=== PATIENT | male | born 1970 | race Caucasian/White ===

== ENCOUNTER 2017-07-06 04:35 | Emergency (ER) | payer OTHER ==
--- NOTE | 2017-07-06 04:40 | EDPHY ---
H & P HPI/ROS: HPI CHIEF COMPLAINT: Left-sided chest pain, left arm numbness and tingling HISTORY OF PRESENT ILLNESS: This patient very pleasant 47-year-old male, he does have significant past medical history for HIV. He tells me undetectable viral load and normal CD4 count. Patient denies any other medical problems. He does drink alcohol every day. He presents emergency room at 5 o'clock in the morning with left-sided chest discomfort this been present for over 12 hours. It comes and goes it is worse with exertion. Patient reports to me that it is worse when he stands up and does things. He gets this chest pressure left-sided chest and then numbness and tingling into his arm. States initially he had some calf pain left leg. He denies any pleuritic pain or shortness of breath. Decided come to the emergency room late this evening due to arm tingling and left-sided chest discomfort. However upon arrival he tells me his symptoms have resolved at this time. He denies chest pain at this time. Past Medical History: HIV Past Surgical History: No recent surgery Social History: Daily alcohol use, daily marijuana, denies illicit drugs Family History: Noncontributory ROS REVIEW OF SYSTEMS: A comprehensive 10 point review of systems is otherwise negative aside from elements mentioned in the history of present illness. Exam Constitutional appears well nontoxic, triage nursing summary reviewed, vital signs reviewed, awake/alert. Eyes normal conjunctivae and sclera, EOMI, PERRLA. HENT normal inspection, atraumatic, moist mucus membranes, no epistaxis, neck supple/ no meningismus, no raccoon eyes. Respiratory clear to auscultation bilaterally, normal breath sounds, no respiratory distress, no wheezing. Cardiovascular rate normal, regular rhythm, no murmur, no edema, distal pulses normal. Gastrointestinal soft, non-tender, no rebound, no guarding, normal bowel sounds, no distension, no pulsatile mass. Genitourinary no CVA tenderness. Musculoskeletal no midline vertebral tenderness, full range of motion, no calf swelling, no tenderness of extremities, no meningismus, good pulses, neurovascularly intact. Skin pink, warm, & dry, no rash, skin atraumatic. Neurologic awake, alert and oriented x 3, AAOx3, moves all 4 extremities equally, motor intact, sensory intact, CN II-XII intact, normal cerebellar, normal vision, normal speech. Psychiatric normal mood/affect. Heme/Lymph/Immune no lymphadenopathy. Differential diagnosis includes but is not limited to: ACS, atypical chest pain , pneumothorax, pneumonia, pulmonary embolism, aortic dissection, congestive heart failure, tumor, musculoskeletal pain, esophageal pain, GERD, peptic ulcer disease, pancreatitis Medical Decision Making: Plan for this patient IV establishment with IV fluid bolus, full-dose aspirin, EKG, chest x-ray, blood work. Evaluate and rule out acute coronary syndrome. Re-evaluation: EKG interpretation by me on record in [facility] system. Impression time of EKG 4:45 a.m., this is sinus rhythm rate of 87 I do not appreciate any acute ischemia changes specifically no ST elevation or ST depression. No significant T-wave abnormalities. CT scan of the angiogram chest with IV contrast. The results of the study are no acute pulmonary embolism.. The study was read by Dr. Robledo. I viewed the images myself on the PACS system. Patient received a CT scan angiogram of the chest for positive D-dimer and chest pain. It is negative for PE. 0621AM: I did re-evaluate the patient at this time. He is chest pain-free. Patient is resting comfortably in no acute distress. Blood work has been reviewed. Elevated alcohol level. Given his symptoms of left-sided chest discomfort pressure dull ache and left arm numbness and tingling patient be admitted to the hospital for further cardiac evaluation rule out. 0625AM: Discussed results with the patient. Encouraged patient's stay in the hospital for further cardiac evaluation. He has agreed for this. Spoke with the hospitalist service Dr. Bender who agrees to admit this patient. 0656AM: Extensive discussion with this patient. Went over his results with him. I encouraged the patient to be admitted for chest pain ACS rule out given his left-sided chest discomfort and arm numbness and tingling. However the patient is refusing hospital admission. He is requesting to be go from the hospital. I explained that given his symptoms of chest pain left arm numbness tingling history of HIV alcohol this is cardiac risk factors. He should stay in the hospital for cardiac evaluation and rule out. However this time he is declining this. Refusing to stay. He will not give me a great answer for why. He does have capacity make this decision he is clinically sober. He is not intoxicated despite his elevated alcohol level. He tells me that he drinks much more than this. I explained him that even though his troponin is negative here CT scan does not show a pulmonary embolism and his EKG does not show an acute heart attack that I would like to keep him in the hospital for further cardiac evaluation and rule out given his risk factors And presentation however he is to refusing this. He understands that I cannot assure his safety if he leaves here he can have a massive heart attack and . He understands the risk of this. He understands the risk of leaving. He does understand he changes mind or feels worse he should immediately return to the emergency room for further evaluation and admission. I did spend approximately 30 minutes at bedside discussing all this with him. He understands. He understands the risks of leaving against medical advice without complete for further cardiac evaluation and workup. Source: Patient - Medical/Surgical History Hx Asthma: No Hx Chronic Respiratory Disease: No Hx Diabetes: No Hx Cardiac Disease: No Hx Renal Disease: No Hx Cirrhosis: No Hx Alcoholism: No Hx HIV/AIDS: Yes Hx Splenectomy or Spleen Trauma: No Other PMH: HIV/AIDS - Social History Smoking Status: Never smoked Constitutional: Initial Vital Signs Temperature (C) 36.6 C 07/06/17 04:41 Heart Rate 97 07/06/17 04:41 Respiratory Rate 18 07/06/17 04:41 Blood Pressure 117/84 H 07/06/17 04:41 O2 Sat (%) 96 07/06/17 04:41 O2 Delivery Mode Nasal Cannula O2 (L/minute) 2 Allergies/Adverse Reactions: Sulfa (Sulfonamide Antibiotics) Allergy (Verified 07/06/17 04:41) Home Medications: Medication Instructions Recorded Advil 08/18/16 Descovy 200-25 mg Tablet 08/18/16 Tivicay 08/18/16 Hydrocodone/APAP 5/325 [[place] 1 - 2 tab PO Q4H PRN #10 tab 08/23/16 5/325] Promethazine HCl 25 mg PO Q6-8PRN PRN #10 tablet 08/23/16 Medical Decision Making - Data Points Laboratory Results: Laboratory Results 07/06/17 04:55 07/06/17 04:55 07/06/17 07/06/17 07/06/17 04:55 04:55 04:55 WBC RBC Hgb Hct MCV MCH MCHC RDW Plt Count MPV Neut % (Auto) Lymph % (Auto) [place] % (Auto) Eos % (Auto) Baso % (Auto) Nucleat RBC Rel Count Absolute Neuts (auto) Absolute Lymphs (auto) Absolute Monos (auto) Absolute Eos (auto) Absolute Basos (auto) Absolute Nucleated RBC Immature Gran % Seg Neutrophils % Lymphocytes % Monocytes % Immature Gran # Absolute Seg Neuts Absolute Lymphocytes Absolute Monocytes RBC/WBC/PLT Morphology Atypical Lymphocytes Platelet Estimate Smear Review By PT 13.1 SEC SEC (12.0-15.0) INR 1.00 (0.83-1.16) APTT 24.1 SEC SEC (23.0-38.0) D-Dimer 0.66 ug/mLFEU H ug/mLFEU (0.00-0.50) Sodium 146 mEq/L H mEq/L (134-144) Potassium 4.4 mEq/L mEq/L (3.5-5.2) Chloride 109 mEq/L mEq/L (97-110) Carbon Dioxide 21 mEq/l L mEq/l (22-31) Anion Gap 16 mEq/L mEq/L (8-16) BUN 12 mg/dL mg/dL (7-23) Creatinine 0.9 mg/dL mg/dL (0.7-1.3) Estimated GFR > 60 Glucose 99 mg/dL mg/dL (70-100) Calcium 9.0 mg/dL mg/dL (8.5-10.4) Magnesium 1.9 mg/dL mg/dL (1.6-2.3) Total Bilirubin 0.6 mg/dL mg/dL (0.1-1.4) Conjugated Bilirubin 0.4 mg/dL mg/dL (0.0-0.5) Unconjugated Bilirubin 0.2 mg/dL mg/dL (0.0-1.1) AST 37 IU/L IU/L (17-59) ALT 37 IU/L IU/L (21-72) Alkaline Phosphatase 63 IU/L IU/L (38-126) Creatine Kinase 71 IU/L IU/L (0-224) CK-MB (CK-2) Fraction 0.79 ng/mL ng/mL (0.00-3.19) Troponin I < 0.012 ng/mL ng/mL (0.000-0.034) NT-Pro-B Natriuret Pep 11 pg/mL pg/mL (0-125) Total Protein 7.6 g/dL g/dL (6.3-8.2) Albumin 4.1 g/dL g/dL (3.5-5.0) Lipase 226 IU/L IU/L (23-300) Ethyl Alcohol 286 mg/dL H mg/dL (0-10) 07/06/17 04:55 WBC 10.43 10^3/uL H 10^3/uL (3.80-9.50) RBC 4.78 10^6/uL 10^6/uL (4.40-6.38) Hgb 15.8 g/dL g/dL (13.7-17.5) Hct 45.8 % % (40.0-51.0) MCV 95.8 fL fL (81.5-99.8) MCH 33.1 pg pg (27.9-34.1) MCHC 34.5 g/dL g/dL (32.4-36.7) RDW 14.2 % % (11.5-15.2) Plt Count 270 10^3/uL 10^3/uL (150-400) MPV 9.7 fL fL (8.7-11.7) Neut % (Auto) 16.2 % L % (39.3-74.2) Lymph % (Auto) 70.9 % H % (15.0-45.0) Warren % (Auto) 10.8 % % (4.5-13.0) Eos % (Auto) 0.8 % % (0.6-7.6) Baso % (Auto) 1.0 % % (0.3-1.7) Nucleat RBC Rel Count 0.0 % % (0.0-0.2) Absolute Neuts (auto) 1.70 10^3/uL 10^3/uL (1.70-6.50) Absolute Lymphs (auto) 7.39 10^3/uL H 10^3/uL (1.00-3.00) Absolute Monos (auto) 1.13 10^3/uL H 10^3/uL (0.30-0.80) Absolute Eos (auto) 0.08 10^3/uL 10^3/uL (0.03-0.40) Absolute Basos (auto) 0.10 10^3/uL 10^3/uL (0.02-0.10) Absolute Nucleated RBC 0.00 10^3/uL 10^3/uL (0-0.01) Immature Gran % 0.3 % % (0.0-1.1) Seg Neutrophils % 12 % % Lymphocytes % 80 % % Monocytes % 8 % % Immature Gran # 0.03 10^3/uL 10^3/uL (0.00-0.10) Absolute Seg Neuts 1.25 10^/uL L 10^/uL (1.70-6.50) Absolute Lymphocytes 8.34 10^3/uL H 10^3/uL (1.00-3.00) Absolute Monocytes 0.83 10^3/uL H 10^3/uL (0.30-0.80) RBC/WBC/PLT Morphology NORMAL (NORMAL) Atypical Lymphocytes 2+ H Platelet Estimate ADEQUATE (ADEQ) Smear Review By Pending PT INR APTT D-Dimer Sodium Potassium Chloride Carbon Dioxide Anion Gap BUN Creatinine Estimated GFR Glucose Calcium Magnesium Total Bilirubin Conjugated Bilirubin Unconjugated Bilirubin AST ALT Alkaline Phosphatase Creatine Kinase CK-MB (CK-2) Fraction Troponin I NT-Pro-B Natriuret Pep Total Protein Albumin Lipase Ethyl Alcohol Medications Given: Discontinued Medications Aspirin (Aspirin) 324 mg PO EDNOW ONE Stop: 07/06/17 04:57 Last Admin: 07/06/17 05:05 Dose: 324 mg Sodium Chloride (Ns) 1,000 mls @ 0 mls/hr IV EDNOW ONE; Wide Open PRN Reason: Protocol Stop: 07/06/17 04:57 Last Admin: 07/06/17 05:05 Dose: 1,000 mls Nitroglycerin (Nitrostat) 0.4 mg SL EDNOW ONE Stop: 07/06/17 05:20 Last Admin: 07/06/17 05:22 Dose: 0.4 mg Departure - Departure Disposition: Against Medical Advice Clinical Impression: Chest pain Qualifiers: Chest pain type: unspecified Qualified Code(s): R07.9 - Chest pain, unspecified Condition: Fair
[2017-07-06 04:43] VITALS: TEMP 97.9
--- NOTE | 2017-07-06 04:50 | CPEKG ---
Heart Rate: 87 RR Interval: 690 P-R Interval: 148 QRSD Interval: 98 QT Interval: 364 QTC Interval: 438 P [place]: 27 QRS [place]: 90 T Wave [place]: 10 EKG Severity - BORDERLINE ECG - EKG Impression: SINUS RHYTHM EKG Impression: BORDERLINE RIGHT AXIS DEVIATION EKG Impression: BORDERLINE INFERIOR Q WAVES Electronically Signed By: Carlos Healy 06-Jul-2017 07:28:48
[2017-07-06] MEDS ORDERED: ASPIRIN 81 MG CHEWABLE TAB PO ONE (04:56)
[2017-07-06] MEDS ORDERED: NS 1,000 ML IV ONE (04:56)
[2017-07-06 05:09] LABS: % IMMATURE GRANULYOCYTES 0.3 % (0.0-1.1); ABSOLUTE IMMATURE GRANULOCYTES 0.03 10^3/uL (0.00-0.10); ADD DIFF? NO; ADD MORPH? NO; ADD SCAN? YES; ATYPICAL LYMPHOCYTE FLAG 0 (0-99); FRAGMENT RBC FLAG 0 (0-99); HEMATOCRIT 45.8 % (40.0-51.0); HEMOGLOBIN 15.8 g/dL (13.7-17.5); LEFT SHIFT FLG 0 (0-99); LIPEMIA HEMOLYSIS FLAG 90 (0-99); MEAN CELL HEMOGLOBIN 33.1 pg (27.9-34.1); MEAN CELL HEMOGLOBIN CONCENTR. 34.5 g/dL (32.4-36.7); MEAN CELL VOLUME 95.8 fL (81.5-99.8); MEAN PLATELET VOLUME 9.7 fL (8.7-11.7); PLATELET CLUMPS FLAG 0 (0-99); PLATELET COUNT 270 10^3/uL (150-400); RED BLOOD CELL COUNT 4.78 10^6/uL (4.40-6.38); RED CELL DISTRIBUTION WIDTH 14.2 % (11.5-15.2)
[2017-07-06 05:14] LABS: APTT 24.1 SEC (23.0-38.0); PROTIME(PATIENT) 13.1 SEC (12.0-15.0)
[2017-07-06 05:17] LABS: ALANINE AMINOTRANSFERASE 37 IU/L (21-72); ALBUMIN 4.1 g/dL (3.5-5.0); ALKALINE PHOSPHATASE 63 IU/L (38-126); ANION GAP 16 mEq/L (8-16); ASPARTATE AMINOTRANSFERASE 37 IU/L (17-59); BILIRUBIN,TOTAL 0.6 mg/dL (0.1-1.4); BILIRUBIN-CONJUGATED 0.4 mg/dL (0.0-0.5); BILIRUBIN-UNCONJUGATED 0.2 mg/dL (0.0-1.1); CARBON DIOXIDE 21 mEq/l (22-31); CHLORIDE 109 mEq/L (97-110); CREATININE 0.9 mg/dL (0.7-1.3); GLOMERULAR FILTRATION RATE > 60; GLUCOSE 99 mg/dL (70-100); MAGNESIUM 1.9 mg/dL (1.6-2.3); POTASSIUM 4.4 mEq/L (3.5-5.2); SODIUM 146 mEq/L (134-144); TOTAL PROTEIN 7.6 g/dL (6.3-8.2)
[2017-07-06] MEDS ORDERED: NITROGLYCERIN 0.4 MG BTL SL ONE (05:19)
[2017-07-06 05:24] VITALS: RESP 16; O2SAT 98
[2017-07-06 05:28] LABS: CREATINE KINASE-MB FRACTION 0.79 ng/mL (0.00-3.19); TROPONIN I < 0.012 ng/mL (0.000-0.034)
[2017-07-06 05:30] VITALS: BP 107/77; PULSE 77
[2017-07-06 05:36] LABS: ETHANOL SERUM 286 mg/dL (0-10)
[2017-07-06 05:38] LABS: SCAN POSITIVE
[2017-07-06 05:44] LABS: PLATELET ESTIMATE ADEQUATE (ADEQ)
[2017-07-06] MEDS ORDERED: IOPAMIDOL (ISOVUE 370) 100 ML BTL IV ONE (05:48)
== END 2017-07-06 07:15 | disposition left against medical advice (07) ==
LOC: UNDOADMOB 06:24
DX: R07.9 Chest pain, unspecified (principal); B20 Human immunodeficiency virus [HIV] disease; E86.9 Volume depletion, unspecified
CPT/HCPCS: G0480; Q9967